=== PATIENT | female | born 2000 | race Two or more races ===

== ENCOUNTER 2023-01-03 13:33 | Observation (INO) | payer MEDICAID ==
[~2023-01-03] VITALS: Ht 167.6 cm; Wt 78.5 kg
[2023-01-03] MEDS ORDERED: LACTATED RINGER'S 1,000 ML IV ONE (14:45)
[2023-01-03 15:07] LABS: Urine Amorphous Crystal FEW /hpf (None Seen); Urine Bacteria FEW /hpf (None Seen); Urine Blood TRACE /uL (Negative); Urine WBC 174 /hpf (0 - 5); Urine WBC Clumps PRESENT /hpf (None Seen)
[2023-01-03 15:15] LABS: Amphetamine Screen, Urine NEGATIVE (NEGATIVE); Barbiturate Scree,Urine NEGATIVE (NEGATIVE); Benzodiazephine Screen, Urine NEGATIVE (NEGATIVE); Cannabinoid Screen, Urine NEGATIVE (NEGATIVE); Cocaine Screen, Urine NEGATIVE (NEGATIVE); Opiate Scree,Urine NEGATIVE (NEGATIVE); Phencyclidine Screen, Urine NEGATIVE (NEGATIVE)
== END 2023-01-03 15:30 | disposition home or self-care (01) ==
LOC: LDRP 13:33
PROVIDERS: ADMIT Obstetrics & Gynecology; ATTEND Obstetrics & Gynecology
DX: O26.892 Other specified pregnancy related conditions, second trimester (principal); R10.9 Unspecified abdominal pain; Z3A.20 20 weeks gestation of pregnancy
CPT/HCPCS: 59025; 80307; 81001; 81002; 94760; G0378

== ENCOUNTER → 2023-03-14 | Outpatient (CLI) | payer MEDICAID ==
[2023-03-14 11:16] LABS: Basophils # (auto) 0.1 10 ^3/uL (0-0.2); Basophils % (auto) 0.9 % (0.0-2.0); Eosinophils # (auto) 0.1 10 ^3/uL (0-0.8); Eosinophils % (auto) 1.1 % (0.0-7.0); Hematocrit 38.9 % (36.0-46.0); Hemoglobin 13.1 g/dL (12.2-16.2); Lymphocytes # (auto) 1.7 10 ^3/uL (0.4-5.4); Lymphocytes % (auto) 12.9 % (10.0-50.0); Mean Corpuscular Hemoglobin 29.4 pg (28.0-32.0); Mean Corpuscular Hgb Conc. 33.8 g/dL (32.0-36.0); Monocytes # (auto) 0.6 10 ^3/uL (0-1.3); Monocytes % (auto) 4.8 % (0.0-12.0); Neutrophils # (auto) 10.7 10 ^3/uL (1.6-8.6); Neutrophils % (auto) 80.3 % (37.0-80.0); Red Blood Cells 4.47 10^6/uL (4.0-5.20); Red Cell Distribution Width 13.2 % (11.8-14.3); White Blood Cell 13.4 10^3/uL (4.4-10.8)
== END | disposition home or self-care (01) ==
LOC: LAB 10:50
PROVIDERS: ATTEND Obstetrics & Gynecology
DX: Z34.80 Encounter for supervision of other normal pregnancy, unspecified trimester (principal); Z20.2 Contact with and (suspected) exposure to infections with a predominantly sexual mode of transmission; Z3A.00 Weeks of gestation of pregnancy not specified
CPT/HCPCS: 36415; 85025; 86480; 87086

== ENCOUNTER 2023-03-15 23:38 | Observation (INO) | payer MEDICAID ==
[~2023-03-15] VITALS: Ht 167.6 cm; Wt 77.1 kg
[2023-03-16] MEDS ORDERED: ACETAMINOPHEN 325 MG TAB PO ONE (00:30)
[2023-03-16] MEDS ORDERED: ONDANSETRON HCL 4 MG/2 ML VIAL IV ONE (00:30)
[2023-03-16] MEDS ORDERED: LACTATED RINGER'S 1,000 ML IV ONE (00:30)
[2023-03-16] MEDS ORDERED: ZOFR4T PO (10:21)
[2023-03-16] MEDS ORDERED: PREN-96 PO (10:21)
== END 2023-03-16 02:17 | disposition home or self-care (01) ==
LOC: LDRP 23:38
PROVIDERS: ADMIT Obstetrics & Gynecology; ATTEND Obstetrics & Gynecology
DX: O21.2 Late vomiting of pregnancy (principal); O24.419 Gestational diabetes mellitus in pregnancy, unspecified control; O26.893 Other specified pregnancy related conditions, third trimester; R10.9 Unspecified abdominal pain; Z3A.30 30 weeks gestation of pregnancy
CPT/HCPCS: 59025; 81002; 96360; 96361; 96374; G0378; J2405

== ENCOUNTER 2023-04-04 22:07 | Observation (INO) | payer MEDICAID ==
[~2023-04-04] VITALS: Ht 167.6 cm; Wt 78.0 kg
[~2023-04-04 22:07] MED LIST: PREN-96 PO; ZOFR4T PO
[2023-04-04] MEDS ORDERED: LACTATED RINGER'S 1,000 ML IV SCH (23:00)
[2023-04-04] MEDS ORDERED: LACTATED RINGER'S 1,000 ML IV ONE (23:00)
[2023-04-04] MEDS ORDERED: NIFEdipine 10 MG CAP PO SCH (23:45)
[2023-04-04] MEDS ORDERED: TERBUTALINE SULFATE 1 MG/ML 1ML VIAL SC SCH (23:45)
[2023-04-04] MEDS ORDERED: NIFEdipine 10 MG CAP PO ONE (23:45)
[2023-04-05] MEDS ORDERED: NIFEdipine 10 MG CAP PO SCH
[2023-04-05] MEDS ORDERED: ONDANSETRON HCL 4 MG/2 ML VIAL IV PRN
[2023-04-05] MEDS ORDERED: BETAMETHASONE ACET (30mg/5ml) 5ml Vial 6mg/ml IM ONE (00:15)
[2023-04-05] MEDS ORDERED: NIFEdipine 10 MG CAP PO ONE (00:15)
[2023-04-05 00:16] LABS: COVID19 ANTIGEN SOFIA FIA NEGATIVE (NEGATIVE)
[2023-04-05 00:18] LABS: Rapid Influenza A Negative (Negative); Rapid Influenza B Negative (Negative)
[2023-04-05] MEDS ORDERED: NITR-52 PO (02:07)
[2023-04-05] MEDS ORDERED: NIFE1TAB31 PO (02:09)
== END 2023-04-05 02:41 | disposition home or self-care (01) ==
LOC: LDRP 22:07
PROVIDERS: ADMIT Obstetrics & Gynecology; ATTEND Obstetrics & Gynecology
DX: O60.03 Preterm labor without delivery, third trimester (principal); Z20.822 Contact with and (suspected) exposure to COVID-19; Z3A.33 33 weeks gestation of pregnancy; Z88.0 Allergy status to penicillin
CPT/HCPCS: 36415; 59025; 81002; 87426; 87804; 94760; 96361; 96372; 96374; G0378; J0702; J2405; J3105; 96360

== ENCOUNTER 2023-04-05 23:17 | Observation (INO) | payer MEDICAID ==
[~2023-04-05] VITALS: Ht 165.1 cm; Wt 78.0 kg
[~2023-04-05 23:17] MED LIST changes: +NIFE1TAB31 PO; +NITR-52 PO
[2023-04-06] MEDS ORDERED: BETAMETHASONE ACET (30mg/5ml) 5ml Vial 6mg/ml IM ONE (00:15)
== END 2023-04-06 00:29 | disposition home or self-care (01) ==
LOC: LDRP 23:17
PROVIDERS: ADMIT Obstetrics & Gynecology; ATTEND Obstetrics & Gynecology
DX: O60.03 Preterm labor without delivery, third trimester (principal); O26.893 Other specified pregnancy related conditions, third trimester; R10.30 Lower abdominal pain, unspecified; Z3A.33 33 weeks gestation of pregnancy
CPT/HCPCS: 59025; 81002; 94760; 96372; G0378

== ENCOUNTER 2023-04-12 19:09 | Observation (INO) | payer MEDICAID | END 2023-04-12 20:29 | disposition home or self-care (01) | LOC: LDRP 19:09 | PROVIDERS: ADMIT Obstetrics & Gynecology; ATTEND Obstetrics & Gynecology | DX: O60.03 Preterm labor without delivery, third trimester (principal); Z3A.34 34 weeks gestation of pregnancy | CPT/HCPCS: 59025; 76815; 76817; 81002; 94760; G0378 ==

== ENCOUNTER 2023-04-19 17:05 | Observation (INO) | payer MEDICAID | END 2023-04-19 17:55 | disposition home or self-care (01) | LOC: LDRP 17:05 | PROVIDERS: ADMIT Obstetrics & Gynecology; ATTEND Obstetrics & Gynecology | DX: O60.00 Preterm labor without delivery, unspecified trimester (principal); Z3A.00 Weeks of gestation of pregnancy not specified | CPT/HCPCS: 59025; 81002; G0378 ==

== ENCOUNTER 2023-04-24 22:35 | Observation (INO) | payer MEDICAID ==
[~2023-04-24 22:35] MED LIST changes: -NITR-52 PO
[2023-04-26] MEDS ORDERED: CEPH250C PO (12:20)
== END 2023-04-25 00:32 | disposition home or self-care (01) ==
LOC: LDRP 22:35
PROVIDERS: ADMIT Obstetrics & Gynecology; ATTEND Obstetrics & Gynecology
DX: O62.9 Abnormality of forces of labor, unspecified (principal); O36.8130 Decreased fetal movements, third trimester, not applicable or unspecified; Z3A.36 36 weeks gestation of pregnancy
CPT/HCPCS: 59025; 76818; 81002; G0378

== ENCOUNTER 2023-04-26 11:15 | Observation (INO) | payer MEDICAID ==
[2023-04-26] MEDS ORDERED: CEPH250C PO (12:20)
== END 2023-04-26 13:07 | disposition home or self-care (01) ==
LOC: UNDOADMOB 11:15 → LDRP 11:15 → UNDODISOB 13:07
PROVIDERS: ADMIT Obstetrics & Gynecology; ATTEND Obstetrics & Gynecology
DX: O60.03 Preterm labor without delivery, third trimester (principal); O23.43 Unspecified infection of urinary tract in pregnancy, third trimester; Z3A.36 36 weeks gestation of pregnancy; Z88.0 Allergy status to penicillin
CPT/HCPCS: 59025; 81002; 94760; G0378

== ENCOUNTER 2023-05-04 01:52 | Observation (INO) | payer MEDICAID ==
[~2023-05-04 01:52] MED LIST changes: +CEPH250C PO; -NIFE1TAB31 PO; -ZOFR4T PO
== END 2023-05-04 02:58 | disposition home or self-care (01) ==
LOC: LDRP 01:52
PROVIDERS: ADMIT Obstetrics & Gynecology; ATTEND Obstetrics & Gynecology
DX: O47.1 False labor at or after 37 completed weeks of gestation (principal); O23.43 Unspecified infection of urinary tract in pregnancy, third trimester; Z3A.37 37 weeks gestation of pregnancy; Z88.0 Allergy status to penicillin; Z91.040 Latex allergy status
CPT/HCPCS: 59025; 81002; 94760; G0378

== ENCOUNTER 2023-05-11 18:27 | Observation (INO) | payer MEDICAID ==
[~2023-05-11] VITALS: Ht 167.6 cm; Wt 78.5 kg
[~2023-05-11 18:27] MED LIST changes: -CEPH250C PO
== END 2023-05-11 20:16 | disposition home or self-care (01) ==
LOC: LDRP 18:27
PROVIDERS: ADMIT Obstetrics & Gynecology; ATTEND Obstetrics & Gynecology
DX: O26.893 Other specified pregnancy related conditions, third trimester (principal); R10.9 Unspecified abdominal pain; O36.8130 Decreased fetal movements, third trimester, not applicable or unspecified; Z3A.38 38 weeks gestation of pregnancy; Z88.0 Allergy status to penicillin; Z91.040 Latex allergy status
CPT/HCPCS: 59025; 76818; 81002; 94760; G0378

== ENCOUNTER 2023-05-12 14:59 | Inpatient (IN) | payer MEDICAID ==
[~2023-05-12] VITALS: Ht 167.6 cm; Wt 83.0 kg
[2023-05-12] MEDS ORDERED: METHYLERGONOVINE MALEATE 0.2 MG/ML AMP IM PRN (16:15)
[2023-05-12] MEDS ORDERED: LIDOCAINE 2%HCL (LOCAL ANESTH.) INJ 20ML MDV IJ PRN (16:15)
[2023-05-12] MEDS ORDERED: TRANEXAMIC ACID 1,000 MG in SODIUM CHL 0.9% 100 ML IV ONE (16:15)
[2023-05-12] MEDS ORDERED: PROMETHAZINE HCL 25 MG/ML 1ML IV PRN (16:15)
[2023-05-12] MEDS ORDERED: WITCH HAZEL-GLYCERIN PAD TOP PRN (16:15)
[2023-05-12] MEDS ORDERED: DERMOPLAST 60ML BOTTLE TOP PRN (16:15)
[2023-05-12] MEDS ORDERED: miSOPROStol 100 mcg TAB SL PRN (16:15)
[2023-05-12] MEDS ORDERED: BUTORPHANOL TARTRATE 2 MG/1 ML VIAL IV PRN ×2 (16:15)
[2023-05-12] MEDS ORDERED: CARBOPROST TROMETHAMINE 250 MCG/1ML VIAL IM PRN (16:15)
[2023-05-12] MEDS ORDERED: LACT. RINGERS/OXYTOCIN 20UNITS 1,000 ML IV SCH (16:15)
[2023-05-12] MEDS ORDERED: LACT. RINGERS/OXYTOCIN 20UNITS 500 ML IV ONE ×2 (16:15→16:45)
[2023-05-12] MEDS ORDERED: ONDANSETRON HCL 4 MG/2 ML VIAL IV PRN (16:15)
[2023-05-12] MEDS ORDERED: miSOPROStol 100 mcg TAB PR PRN (16:15)
[2023-05-12 16:43] LABS: Basophils # (auto) 0.1 10 ^3/uL (0-0.2); Basophils % (auto) 0.8 % (0.0-2.0); Eosinophils # (auto) 0.1 10 ^3/uL (0-0.8); Eosinophils % (auto) 0.7 % (0.0-7.0); Hematocrit 40.8 % (36.0-46.0); Hemoglobin 13.4 g/dL (12.2-16.2); Lymphocytes % (auto) 12.1 % (10.0-50.0); Mean Corpuscular Hemoglobin 27.8 pg (28.0-32.0); Mean Corpuscular Hgb Conc. 32.8 g/dL (32.0-36.0); Mean Corpuscular Volume 84.6 fL (80.0-100.0); Monocytes % (auto) 5.9 % (0.0-12.0); Neutrophils # (auto) 13.2 10 ^3/uL (1.6-8.6); Neutrophils % (auto) 80.5 % (37.0-80.0); Red Blood Cells 4.82 10^6/uL (4.0-5.20); White Blood Cell 16.4 10^3/uL (4.4-10.8)
[2023-05-12 16:48] LABS: Urine Bacteria FEW /hpf (None Seen); Urine Blood TRACE /uL (Negative); Urine Clarity Clear (Clear); Urine Color Yellow (Yellow); Urine Mucus FEW (None Seen); Urine Protein, UAD Negative (Negative); Urine Specific Gravity 1.009 (1.001-1.035); Urine Urobilinogen Normal (Negative); Urine WBC 41 /hpf (0 - 5); Urine pH 6.5 (5.0-8.0)
[2023-05-12] MEDS: LACTATED RINGER'S 1,000 ML IV SCH ×2 (16:56→19:28)
[2023-05-12 16:58] LABS: Amphetamine Screen, Urine Neg (NEGATIVE); Benzodiazephine Screen, Urine Neg (NEGATIVE)
[2023-05-12 16:59] LABS: INR 0.93 (0.9-1.15); Partial Thromboplastin Time 24.2 SEC (24.5-34.5); Prothrombin Time 9.8 sec (9.3-11.8)
[2023-05-12 16:59] LABS: Barbiturate Scree,Urine Neg (NEGATIVE); Cannabinoid Screen, Urine Neg (NEGATIVE); Cocaine Screen, Urine Neg (NEGATIVE); Opiate Scree,Urine Neg (NEGATIVE); Phencyclidine Screen, Urine Neg (NEGATIVE)
[2023-05-12 17:01] LABS: Albumin 3.7 g/dL (3.2-4.8); Alkaline Phosphatase 160 U/L (46-116); Anion Gap 8 (5-15); Aspartate Aminotransferase 13 U/L (13-40); BUN/Creatinine Ratio 8.6 (10.0-20.0); Bilirubin, Total 0.7 mg/dL (0.2-1.0); Blood Urea Nitrogen 6 mg/dL (9-23); Calcium 9.2 mg/dL (8.5-10.1); Carbon Dioxide 22 mmol/L (20-30); Chloride 107 mmol/L (98-107); Glucose 88 mg/dL (74-106); Potassium 3.3 mmol/L (3.5-5.1); Sodium 137 mmol/L (136-145); Total Protein 6.5 g/dL (5.7-8.2)
[2023-05-12 17:03] LABS: Alanine Aminotransferase < 9 U/L (7-40)
[2023-05-12] MEDS ORDERED: ROPIVACAINE HCL 200 ML EPI SCH (17:30)
[2023-05-12] MEDS ORDERED: fentaNYL CITRATE 100 MCG/2 ML VL IV ONE (17:30)
[2023-05-12] MEDS ORDERED: LACTATED RINGER'S 1,000 ML IV ONE (17:30)
[2023-05-12] MEDS ORDERED: LIDOCAINE HCL 2 %PF INJ 10ML AMP IJ ONE (17:30)
[2023-05-12] MEDS ORDERED: NALOXONE HCL 0.4 MG/ML VIAL IV ONE (17:30)
[2023-05-12] MEDS ORDERED: ePHEDrine SULFATE 50 MG/ML AMP IV ONE (17:30)
[2023-05-12] MEDS ORDERED: CARBOPROST TROMETHAMINE 250 MCG/1ML VIAL IM ONE (20:30)
[2023-05-12] MEDS ORDERED: DIPHENOXYLATE W/ATROPINE 2.5 MG TAB PO SCH (22:00)
[2023-05-12] MEDS ORDERED: CLINDAMYCIN 600MG IV 50 ML IV SCH (22:00)
[2023-05-12] MEDS: PHISODERM TOP SOLN 240ML BTL TOP PRN (22:37)
[2023-05-13] MEDS ORDERED: CLINDAMYCIN 600MG IV 50 ML IV SCH (01:00)
[2023-05-13 03:00] VITALS: BP 113/66; PULSE 92; RESP 16; TEMP 97.6; O2SAT 98
[2023-05-13] MEDS ORDERED: ONDANSETRON ODT 4 MG TAB PO PRN (04:15)
[2023-05-13] MEDS ORDERED: ACETAMINOPHEN 325 MG TAB PO PRN (04:15)
[2023-05-13 07:00] VITALS: BP 110/71; PULSE 86; RESP 16; TEMP 98.3; O2SAT 97
[2023-05-13] MEDS: IBUPROFEN 800 MG TAB PO SCH ×2 (08:24→16:14)
[2023-05-13 11:00] VITALS: BP 107/75; PULSE 75; RESP 16; TEMP 98.1; O2SAT 99
[2023-05-13 12:02] LABS: Basophils # (auto) 0.1 10 ^3/uL (0-0.2); Basophils % (auto) 0.3 % (0.0-2.0); Eosinophils # (auto) 0 10 ^3/uL (0-0.8); Eosinophils % (auto) 0.2 % (0.0-7.0); Hematocrit 37.8 % (36.0-46.0); Hemoglobin 12.6 g/dL (12.2-16.2); Lymphocytes # (auto) 2.3 10 ^3/uL (0.4-5.4); Lymphocytes % (auto) 10.2 % (10.0-50.0); Mean Corpuscular Hemoglobin 28.2 pg (28.0-32.0); Mean Corpuscular Hgb Conc. 33.2 g/dL (32.0-36.0); Mean Corpuscular Volume 84.8 fL (80.0-100.0); Monocytes # (auto) 1.3 10 ^3/uL (0-1.3); Neutrophils # (auto) 18.5 10 ^3/uL (1.6-8.6); Neutrophils % (auto) 83.3 % (37.0-80.0); Red Blood Cells 4.46 10^6/uL (4.0-5.20); Red Cell Distribution Width 14.9 % (11.8-14.3); White Blood Cell 22.2 10^3/uL (4.4-10.8)
[2023-05-13 12:19] LABS: Albumin 3.2 g/dL (3.2-4.8); Alkaline Phosphatase 170 U/L (46-116); Anion Gap 7 (5-15); Aspartate Aminotransferase 17 U/L (13-40); Bilirubin, Total 0.5 mg/dL (0.2-1.0); Calcium 8.8 mg/dL (8.7-10.4); Carbon Dioxide 22 mmol/L (20-30); Chloride 110 mmol/L (98-107); Glucose 83 mg/dL (74-106); Potassium 3.4 mmol/L (3.5-5.1); Sodium 139 mmol/L (136-145); Total Protein 5.8 g/dL (5.7-8.2)
[2023-05-13 12:47] LABS: Alanine Aminotransferase < 9 U/L (7-40); BUN/Creatinine Ratio 8.3 (10.0-20.0); Blood Urea Nitrogen < 5 mg/dL (9-23)
[2023-05-13] MEDS ORDERED: POTASSIUM CHL 20 Meq TABLET PO ONE (14:00)
[2023-05-13 15:00] VITALS: BP 104/69; PULSE 84; RESP 16; TEMP 97.9; O2SAT 98
[2023-05-13] MEDS: PHISODERM TOP SOLN 240ML BTL TOP PRN (16:14)
[2023-05-13 19:15] VITALS: BP 101/72; PULSE 94; RESP 18; TEMP 97.9; O2SAT 98
[2023-05-13 23:00] VITALS: BP 103/76; PULSE 92; RESP 18; TEMP 98.1; O2SAT 98
[2023-05-14] MEDS ORDERED: IBUP-1455 PO (00:42)
[2023-05-14 03:00] VITALS: BP 109/70; PULSE 78; RESP 16; TEMP 98.1; O2SAT 100
[2023-05-14] MEDS: IBUPROFEN 800 MG TAB PO SCH ×2 (03:05→15:06)
[2023-05-14 06:24] LABS: Basophils # (auto) 0.1 10 ^3/uL (0-0.2); Basophils % (auto) 0.4 % (0.0-2.0); Eosinophils # (auto) 0.2 10 ^3/uL (0-0.8); Eosinophils % (auto) 1.7 % (0.0-7.0); Hematocrit 39.7 % (36.0-46.0); Hemoglobin 13.1 g/dL (12.2-16.2); Lymphocytes # (auto) 3.3 10 ^3/uL (0.4-5.4); Lymphocytes % (auto) 24.1 % (10.0-50.0); Mean Corpuscular Hemoglobin 28.1 pg (28.0-32.0); Mean Corpuscular Volume 85.2 fL (80.0-100.0); Monocytes # (auto) 0.9 10 ^3/uL (0-1.3); Monocytes % (auto) 6.2 % (0.0-12.0); Neutrophils # (auto) 9.3 10 ^3/uL (1.6-8.6); Neutrophils % (auto) 67.6 % (37.0-80.0); Red Blood Cells 4.65 10^6/uL (4.0-5.20); Red Cell Distribution Width 15.3 % (11.8-14.3); White Blood Cell 13.7 10^3/uL (4.4-10.8)
[2023-05-14 07:06] LABS: RPR Non Reactive (Non Reactive)
[2023-05-14 07:07] VITALS: BP 102/67; PULSE 71; RESP 18; TEMP 98.2; O2SAT 97
[2023-05-14 11:00] VITALS: BP 115/68; PULSE 76; RESP 16; TEMP 98.1; O2SAT 100
[2023-05-14 15:00] VITALS: BP 110/72; PULSE 80; RESP 16; TEMP 98.4; O2SAT 100
[2023-05-14 19:00] VITALS: BP 116/71; PULSE 81; RESP 18; TEMP 98.2; O2SAT 96
[2023-05-14 23:00] VITALS: BP 113/70; PULSE 75; RESP 18; TEMP 98; O2SAT 95
[2023-05-15 03:00] VITALS: BP 104/67; PULSE 67; RESP 16; TEMP 97.7; O2SAT 94
[2023-05-15] MEDS: IBUPROFEN 800 MG TAB PO SCH (03:12)
[2023-05-15 07:00] VITALS: BP 109/67; PULSE 78; RESP 17; TEMP 98.1; O2SAT 98
[2023-05-15 22:06] LABS: Treponema pallidum Ab (FTA-Ab) Non Reactive (Non Reactive)
== END 2023-05-15 09:40 | disposition home or self-care (01) | DRG 560 ==
LOC: LDRP 14:59 → OBSVTOIN 16:15 → LDRP 17:30
PROVIDERS: ADMIT Obstetrics & Gynecology; ATTEND Obstetrics & Gynecology
PROC: 10E0XZZ Delivery of Products of Conception, External Approach (ICD-10-PCS; principal; 2023-05-13)
PROC: 0HQ9XZZ Repair Perineum Skin, External Approach (ICD-10-PCS; 2023-05-13)
PROC: 3E0R3BZ Introduction of Anesthetic Agent into Spinal Canal, Percutaneous Approach (ICD-10-PCS; 2023-05-13)
PROC: 00HU33Z Insertion of Infusion Device into Spinal Canal, Percutaneous Approach (ICD-10-PCS; 2023-05-13)
DX: O70.0 First degree perineal laceration during delivery (principal); Z37.0 Single live birth; Z3A.38 38 weeks gestation of pregnancy
CPT/HCPCS: 36415; 59025; 59409; 62282; 80053; 80307; 81001; 81002; 85025; 85610; 85730; 86592; 86850; 86900; 86901; 94760; 96360; 96361; 96366; G0378; J2590; J3490

== ENCOUNTER 2023-07-26 08:36 | Day surgery (SDC) | payer MEDICAID ==
[2023-07-24 11:57] LABS: Basophils # (auto) 0.1 10 ^3/uL (0-0.2); Basophils % (auto) 0.6 % (0.0-2.0); Eosinophils # (auto) 0.3 10 ^3/uL (0-0.8); Eosinophils % (auto) 3.3 % (0.0-7.0); Hematocrit 45.3 % (36.0-46.0); Hemoglobin 15.3 g/dL (12.2-16.2); Lymphocytes # (auto) 2.6 10 ^3/uL (0.4-5.4); Lymphocytes % (auto) 31.2 % (10.0-50.0); Mean Corpuscular Hemoglobin 28.9 pg (28.0-32.0); Mean Corpuscular Hgb Conc. 33.7 g/dL (32.0-36.0); Mean Corpuscular Volume 85.6 fL (80.0-100.0); Monocytes # (auto) 0.5 10 ^3/uL (0-1.3); Monocytes % (auto) 5.7 % (0.0-12.0); Neutrophils % (auto) 59.2 % (37.0-80.0); Red Blood Cells 5.29 10^6/uL (4.0-5.20); Red Cell Distribution Width 14.8 % (11.8-14.3); White Blood Cell 8.4 10^3/uL (4.4-10.8)
[2023-07-24 12:10] LABS: INR 1.03 (0.9-1.15); Partial Thromboplastin Time 24.7 SEC (24.5-34.5); Prothrombin Time 10.8 sec (9.3-11.8)
[2023-07-24 12:51] LABS: Alanine Aminotransferase 24 U/L (7-40); Albumin 4.7 g/dL (3.2-4.8); Alkaline Phosphatase 122 U/L (46-116); Anion Gap 5 (5-15); Aspartate Aminotransferase 14 U/L (13-40); Bilirubin, Total 0.6 mg/dL (0.2-1.0); Blood Urea Nitrogen 12 mg/dL (9-23); Calcium 9.2 mg/dL (8.7-10.4); Carbon Dioxide 29 mmol/L (20-30); Chloride 107 mmol/L (98-107); Glucose 83 mg/dL (74-106); Potassium 4.2 mmol/L (3.5-5.1); Sodium 141 mmol/L (136-145); Total Protein 7.4 g/dL (5.7-8.2)
[~2023-07-26] VITALS: Ht 167.6 cm; Wt 74.4 kg
[2023-07-26] MEDS ORDERED: ZOFR4T PO (09:20)
[2023-07-26] MEDS ORDERED: HYDR-4902 PO (09:20)
[2023-07-26] MEDS ORDERED: CLINDAMYCIN 600MG IV 50 ML IV ONE (09:38)
[2023-07-26] MEDS ORDERED: BUPIVACAINE HCL 0.25% P/F 10 ML VIAL ONE (10:14)
[2023-07-26] MEDS ORDERED: BUPIVACAINE 0.5% P/F INJ 10 ML VIAL ONE (10:17)
[2023-07-26] MEDS ORDERED: LACTATED RINGER'S 1,000 ML IV SCH (10:30)
[2023-07-26] MEDS ORDERED: ONDANSETRON HCL 4 MG/2 ML VIAL IV PRN ×2 (10:30→11:30)
[2023-07-26] MEDS ORDERED: MEPERIDINE HCL (25 MG/ML) 1ML VIAL ONE (10:32)
[2023-07-26] MEDS ORDERED: MIDAZOLAM HCL 2MG/2ML 2ml VIAL (1mg/ml) ONE (10:33)
[2023-07-26] MEDS ORDERED: fentaNYL CITRATE 100 MCG/2 ML VL ONE (10:33)
[2023-07-26] MEDS ORDERED: DexAMETHasone SOD PHOS 10MG/1ML VIAL INJ ONE (10:35)
[2023-07-26] MEDS ORDERED: SUGAMMADEX 200mg/2ml Vial (100MG/ML) IV ONE (11:03)
[2023-07-26] MEDS ORDERED: LABETALOL HCL 5 MG/ML 4ML SYRINGE IV PRN (11:30)
[2023-07-26] MEDS ORDERED: MORPHINE SULFATE 4 MG/ML SYR/VIAL IV PRN (11:30)
[2023-07-26] MEDS ORDERED: MIDAZOLAM HCL 2MG/2ML 2ml VIAL (1mg/ml) IV PRN (11:30)
[2023-07-26] MEDS ORDERED: ePHEDrine SULFATE 50 MG/ML AMP IV PRN (11:30)
[2023-07-26] MEDS ORDERED: HYDROmorphone HCL 2 MG/ML VL/or syr ONE (11:36)
[2023-07-26] MEDS: HYDROmorphone HCL 2 MG/ML VL/or syr IV PRN ×2 (11:38→11:48)
[2023-07-26] MEDS ORDERED: ONDANSETRON HCL 4 MG/2 ML VIAL ONE (11:38)
[2023-07-26 12:20] VITALS: BP 108/61; PULSE 71; RESP 14; O2SAT 99
== END 2023-07-26 12:20 | disposition home or self-care (01) ==
LOC: SUR 08:36
PROVIDERS: ATTEND Obstetrics & Gynecology
DX: Z30.2 Encounter for sterilization (principal); Z90.49 Acquired absence of other specified parts of digestive tract
CPT/HCPCS: 36415; 58671; 80053; 84702; 85025; 85610; 85730; 86850; 86900; 86901; J1100; J1170; J2175; J2250; J2405; J3010; J3490